=== PATIENT | male | born 1980 | race American Indian/Alaskan Native ===

== ENCOUNTER 2019-02-27 22:34 | Emergency (ER) | payer SELFPAY ==
[2019-02-27 23:47] VITALS: BP 142/95
[2019-02-28 00:14] LABS: Hematocrit 41.1 % (35.5-45.6); Hemoglobin 13.6 gm/dl (11.8-15.2); Mean Corpuscular HGB Conc 33 % (32-34); Mean Corpuscular Volume 87 fl (84-94); Platelet Count 345 K/mm3 (140-440); Red Blood Count 4.72 M/mm3 (3.65-5.03); Red Cell Distribution Width 13.4 % (13.2-15.2)
[2019-02-28 00:30] LABS: Alanine Aminotransferase 16 units/L (7-56); Albumin 3.9 g/dL (3.9-5); BUN/Creatinine Ratio 9; Blood Urea Nitrogen 7 mg/dL (9-20); Calcium 9.1 mg/dL (8.4-10.2); Hemolysis Index 8
--- NOTE | 2019-02-28 01:48 | Cat Scan Report ---
CT abdomen pelvis wo con INDICATION / CLINICAL INFORMATION: Abcess in sacral area. TECHNIQUE: All CT scans at this location are performed using CT dose reduction for ALARA by means of automated e xposure control. COMPARISON: None available. FINDINGS: No free fluid is seen in the abdomen. The liver, spleen, kidneys, pancreas, adrenal glands and great vessels are normal. Postsurgical changes seen in the midabdomen. In the pelvis, no free fluid is seen. No enlarged lymph nodes are identified. The bladder is normal. The appendix is not well visualized. There is induration seen in the subcutaneous tissues of the uppe r gluteal fold there may be a tiny fluid collection present in this area. The gluteal muscles and the sacrum are unremarkable in appearance. No significant skeletal abnormality is identified. IMPRESSION: 1. Inflammation and induration in the subcutaneous fat of the upper gluteal fold and lower presacral area there may be a tiny fluid collection in this area. The gluteal muscles appear to be unremarkable in appearance. 2. Postsurgical change in the mid abdomen Signer Name: Mac ARORA Signed: 02/28/2019 1:44 AM Workstation Name: [id number]
[2019-02-28] MEDS ORDERED: XYLOCAINE 1% MPF 5 mL INFILTRATI ONE (02:05)
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
[2019-02-28] MEDS ORDERED: CLEOCIN PO ONE (03:08)
[2019-02-28] MEDS ORDERED: NORCO 5/325 PO ONE (03:08)
== END 2019-02-28 03:40 | disposition home or self-care (01) ==
LOC: ED 22:34
DX: L02.31 Cutaneous abscess of buttock (principal)
CPT/HCPCS: 36415; 74176; 80053; 85027